=== PATIENT | female | born 1945 | race Caucasian/White ===

== ENCOUNTER → 2025-02-01 14:08 | Outpatient (REF) | payer MEDICARE, SELFPAY | LOC: REG 14:08 | PROVIDERS: ATTENDING PHYSICIAN Internal Medicine; FAMILY PHYSICIAN Family Medicine Geriatric Medicine | DX: E21.0 Primary hyperparathyroidism (principal); M54.9 Dorsalgia, unspecified; M81.0 Age-related osteoporosis without current pathological fracture | CPT/HCPCS: 72110; 72202 ==